=== PATIENT | male | born 1960 | race African-American/Black ===

== ENCOUNTER → 2016-10-31 | Outpatient (CLI) | payer OTHER ==
[~2016-10-31] MED LIST: ACLI400A2 IH; ALBU8.5H IH; CLON2 PO; CYCL10 PO; FERR-89 PO; MIRT30 PO; OMEP20 PO; PERCT PO; QUET200T PO; RIVA10 PO; TAMS0.4C32 PO; TRAM50TA4 PO
[2016-10-31 15:07] VITALS: BP 121/71
== END | disposition home or self-care (01) ==
LOC: HBOWC 14:35
PROVIDERS: ATTEND Emergency Medicine
DX: S91.114D Laceration without foreign body of right lesser toe(s) without damage to nail, subsequent encounter (principal); R60.0 Localized edema; L84 Corns and callosities; M79.672 Pain in left foot; B35.1 Tinea unguium; J44.9 Chronic obstructive pulmonary disease, unspecified; I10 Essential (primary) hypertension; F20.9 Schizophrenia, unspecified; F10.10 Alcohol abuse, uncomplicated; F11.10 Opioid abuse, uncomplicated; F17.210 Nicotine dependence, cigarettes, uncomplicated; Z86.718 Personal history of other venous thrombosis and embolism; X58.XXXD Exposure to other specified factors, subsequent encounter
CPT/HCPCS: 11055

== ENCOUNTER → 2016-11-14 | Outpatient (CLI) | payer OTHER ==
[2016-11-14 12:07] VITALS: BP 113/65
== END | disposition home or self-care (01) ==
LOC: HBOWC 11:22
PROVIDERS: ATTEND Emergency Medicine
DX: S91.114D Laceration without foreign body of right lesser toe(s) without damage to nail, subsequent encounter (principal); I10 Essential (primary) hypertension; L84 Corns and callosities; J44.9 Chronic obstructive pulmonary disease, unspecified; B35.1 Tinea unguium; X58.XXXD Exposure to other specified factors, subsequent encounter; Y92.9 Unspecified place or not applicable; Y99.9 Unspecified external cause status; Z86.718 Personal history of other venous thrombosis and embolism; F17.210 Nicotine dependence, cigarettes, uncomplicated; F10.10 Alcohol abuse, uncomplicated

== ENCOUNTER 2017-03-22 18:02 | Emergency (ER) | payer OTHER ==
[~2017-03-22] VITALS: Ht 188 cm; Wt 100.0 kg
[2017-03-22] MEDS ORDERED: RIVA10 PO (18:25)
[2017-03-22] MEDS ORDERED: QUET200T PO (18:25)
[2017-03-22] MEDS ORDERED: ACLI400A2 IH (18:25)
[2017-03-22] MEDS ORDERED: CYCL10 PO (18:25)
[2017-03-22] MEDS ORDERED: TAMS0.4C32 PO (18:25)
[2017-03-22] MEDS ORDERED: PERCT PO (18:25)
[2017-03-22] MEDS ORDERED: MIRT30 PO (18:25)
[2017-03-22] MEDS ORDERED: OMEP20 PO (18:25)
[2017-03-22] MEDS ORDERED: FERR-89 PO (18:25)
[2017-03-22] MEDS ORDERED: TRAM50TA4 PO (18:25)
[2017-03-22] MEDS ORDERED: CLON2 PO (18:25)
[2017-03-22] MEDS ORDERED: ALBU8.5H IH (18:25)
[2017-03-22 18:31] VITALS: BP 153/75
== END 2017-03-22 20:12 | disposition left against medical advice (07) ==
LOC: EMS 18:04
DX: R10.9 Unspecified abdominal pain (principal); Z53.21 Procedure and treatment not carried out due to patient leaving prior to being seen by health care provider

== ENCOUNTER 2019-06-07 09:22 | Emergency (ER) | payer OTHER ==
[~2019-06-07] VITALS: Ht 182.9 cm; Wt 100.0 kg
[~2019-06-07 09:22] MED LIST changes: -ACLI400A2 IH; +ACLI400A3 IH; -ALBU8.5H IH; +ALBU8.5H8 IH
[2019-06-07 09:30] VITALS: BP 144/87
[2019-06-07] MEDS ORDERED: AMLO5TAB9 PO (09:35)
[2019-06-07] MEDS ORDERED: ESOM20CA31 PO (09:35)
[2019-06-07] MEDS ORDERED: DOXE25 PO (09:35)
[2019-06-07] MEDS ORDERED: LIDOCAINE/PF 1% 30 ML VIAL INJ ONE (11:30)
[2019-06-07] MEDS ORDERED: LIDOCAINE/PF 1% 5 ML VIAL INJ ONE (11:45)
== END 2019-06-07 12:59 | disposition left against medical advice (07) ==
LOC: EMS 09:25
DX: S01.81XA Laceration without foreign body of other part of head, initial encounter (principal); F20.9 Schizophrenia, unspecified; J44.9 Chronic obstructive pulmonary disease, unspecified; I10 Essential (primary) hypertension; F17.210 Nicotine dependence, cigarettes, uncomplicated; F12.90 Cannabis use, unspecified, uncomplicated; Z91.14 Patient's other noncompliance with medication regimen; Z53.20 Procedure and treatment not carried out because of patient's decision for unspecified reasons; Z99.2 Dependence on renal dialysis; Z79.899 Other long term (current) drug therapy; Z88.8 Allergy status to other drugs, medicaments and biological substances; Z98.890 Other specified postprocedural states; W05.0XXA Fall from non-moving wheelchair, initial encounter; Y93.89 Activity, other specified; Y92.89 Other specified places as the place of occurrence of the external cause; Y99.8 Other external cause status
CPT/HCPCS: 12011; 93005; J3490

== ENCOUNTER 2019-09-14 09:36 | Inpatient (IN) | payer MEDICAID, OTHER ==
[~2019-09-14] VITALS: Ht 185.4 cm; Wt 113.6 kg
[~2019-09-14 09:36] MED LIST changes: -ACLI400A3 IH; -ALBU8.5H8 IH; +AMLO5TAB9 PO; -CLON2 PO; -CYCL10 PO; +DOXE25 PO; +ESOM20CA31 PO; -FERR-89 PO; -PERCT PO; -RIVA10 PO; -TAMS0.4C32 PO; -TRAM50TA4 PO
[2019-09-14] MEDS ORDERED: LORazepam 2 MG TABLET PO PRN (13:30)
[2019-09-14] MEDS ORDERED: HALOPERIDOL 5 MG TABLET PO PRN (13:30)
[2019-09-14] MEDS ORDERED: ZOLPIDEM TARTRATE 10 MG TABLET PO PRN (13:30)
[2019-09-14] MEDS ORDERED: DiphenhydrAMINE HCL 50 MG/ML VIAL IM ONE (17:45)
[2019-09-14] MEDS ORDERED: LORazepam 2 MG/ML VIAL IM ONE (17:45)
[2019-09-14] MEDS ORDERED: ZIPRASIDONE MESYLATE 20 MG/VIAL IM ONE (18:00)
[2019-09-15] MEDS ORDERED: PNEUMOCOCCAL VACCINE POLYVALENT 0.5 ML VIAL [PPSV23] IM ONE (05:30)
[2019-09-15] MEDS ORDERED: INFLUENZA VIRUS VACCINE QVS 2019-20 (3YR+)/PF 60 MCG/0.5 ML SYRINGE IM ONE (05:30)
[2019-09-15] MEDS: AmLODIPine BESYLATE 5 MG TABLET PO SCH ×2 (08:34→09:00)
[2019-09-15] MEDS ORDERED: OMEPRAZOLE 20 MG CAPSULE PO SCH (09:00)
[2019-09-15] MEDS ORDERED: ESOMEPRAZOLE MAG TRIHYDRATE 20 MG CAPSULE PO SCH (09:00)
[2019-09-15] MEDS ORDERED: DOCUSATE SODIUM 100 MG CAPSULE PO PRN (12:00)
[2019-09-15] MEDS ORDERED: MAG HYDROX/AL HYDROX/SIMETH ES 30 ML SUSPENSION UDCUP PO PRN (12:00)
[2019-09-15] MEDS ORDERED: GuaiFENesin/D-METHORPHAN [SUGAR-FREE] 200-20MG/10 ML SYRUP UDCUP PO PRN (12:00)
[2019-09-15] MEDS ORDERED: MAGNESIUM HYDROXIDE SUSPENSION 30 ML UDCUP PO PRN (12:00)
[2019-09-15] MEDS ORDERED: CloNIDine HCL 0.1 MG TABLET PO PRN (12:00)
[2019-09-15] MEDS ORDERED: PETROLATUM,WHITE 28 GM JELLY TP PRN (12:00)
[2019-09-15] MEDS ORDERED: ONDANSETRON HCL 4 MG TABLET PO PRN (12:00)
[2019-09-15] MEDS ORDERED: ALBUTEROL SULFATE HFA 90 MCG/PUFF 8 GM INHALER IH PRN (12:00)
[2019-09-15] MEDS ORDERED: LOPERAMIDE HCL 2 MG CAPSULE PO PRN (12:00)
[2019-09-15] MEDS ORDERED: ACETAMINOPHEN 325 MG TABLET PO PRN (12:00)
[2019-09-15] MEDS ORDERED: IBUPROFEN 400 MG TABLET PO PRN (12:00)
[2019-09-15] MEDS: NICOTINE 21 MG/24 HOUR PATCH TD PRN (12:35)
[2019-09-15] MEDS ORDERED: MIRTAZAPINE 15 MG TABLET PO SCH (21:00)
[2019-09-15] MEDS ORDERED: QUEtiapine FUMARATE 200 MG TABLET PO SCH (21:00)
[2019-09-16 06:02] VITALS: BP 132/67
[2019-09-16] MEDS ORDERED: BUDESONIDE/FORMOTEROL FUMARATE 160-4.5 MCG/PUFF 6.9 GM INHALER IH SCH (09:00)
[2019-09-16] MEDS ORDERED: AmLODIPine BESYLATE 5 MG TABLET PO SCH (09:00)
[2019-09-16] MEDS ORDERED: OMEPRAZOLE 20 MG CAPSULE PO SCH (09:00)
[2019-09-16] MEDS ORDERED: BUDE10.2 IH (11:25)
[2019-09-16] MEDS: NICOTINE 21 MG/24 HOUR PATCH TD PRN (12:22)
== END 2019-09-16 13:40 | disposition home or self-care (01) | DRG 750 ==
LOC: EMS 09:38 → B3A 18:08
PROVIDERS: ADMIT Psychiatry & Neurology Psychiatry; ATTEND Psychiatry & Neurology Psychiatry
DX: F20.9 Schizophrenia, unspecified (principal); D64.9 Anemia, unspecified; F17.200 Nicotine dependence, unspecified, uncomplicated; I10 Essential (primary) hypertension; J44.9 Chronic obstructive pulmonary disease, unspecified; K21.9 Gastro-esophageal reflux disease without esophagitis; F10.10 Alcohol abuse, uncomplicated; Y90.9 Presence of alcohol in blood, level not specified; F12.90 Cannabis use, unspecified, uncomplicated; Z88.8 Allergy status to other drugs, medicaments and biological substances; Z28.21 Immunization not carried out because of patient refusal
CPT/HCPCS: J1200; J2060; J3486; J3535

== ENCOUNTER 2019-10-02 09:16 | Emergency (ER) | payer MEDICAID, OTHER ==
[~2019-10-02] VITALS: Ht 190.5 cm; Wt 90.9 kg
[~2019-10-02 09:16] MED LIST changes: +BUDE10.2 IH; -DOXE25 PO; -ESOM20CA31 PO
[2019-10-02] MEDS ORDERED: SODIUM CHLORIDE 0.9% 1,000 ML IV ONE (10:17)
[2019-10-02 10:53] LABS: BASOPHILS % (AUTO) 0.6 % (0.0-2.0); EOSINOPHILS % (AUTO) 1.8 % (1.0-6.0); HEMATOCRIT 32.8 % (41-53); HEMOGLOBIN 10.7 g/dL (13.5-17.5); LYMPHOCYTES # (AUTO) 1.3 K/uL (1.0-4.8); LYMPHOCYTES % (AUTO) 19.2 % (22.0-44.0); MEAN CORPUSCULAR HGB CONC 32.6 G/dL (31.0-37.0); MEAN CORPUSCULAR VOLUME 77 fL (80-100); MONOCYTES # (AUTO) 0.5 K/uL (0.1-1.0); MONOCYTES % (AUTO) 7.8 % (2.0-9.0); NEUTROPHILS # (AUTO) 4.6 K/uL (1.8-7.7); NEUTROPHILS % (AUTO) 70.6 % (40.0-70.0); PLATELET COUNT (AUTO) 323 K/uL (150-450); RED BLOOD CELL COUNT(AUTO) 4.27 MIL/uL (4.50-5.90); RED CELL DISTRIBUTION WIDTH 17.7 % (11.5-14.5)
[2019-10-02 11:11] LABS: LACTIC ACID 1.8 mmol/L (0.4-2.0)
[2019-10-02 11:17] LABS: ALANINE AMINOTRANSFERASE 27 U/L (12-78); ALBUMIN 3.2 g/dL (3.4-5.0); ALKALINE PHOSPHATASE 63 U/L (46-116); ANION GAP 10 mmol/L (8-16); ASPARTATE AMINOTRANSFERASE 32 U/L (15-37); BILIRUBIN,TOTAL 0.5 mg/dL (0.1-1.0); CALCIUM, TOTAL 8.7 mg/dL (8.8-10.5); CARBON DIOXIDE 27 mmol/L (22-29); CHLORIDE 104 mmol/L (98-107); CREATININE 1.07 mg/dL (0.60-1.30); GLOMERULAR FILTR. RATE CALC > 60 mL/min (>60); GLUCOSE,RANDOM 119 mg/dL (70-110); LIPASE 62 U/L (73-393); SODIUM SERUM 141 mmol/L (136-145); TOTAL PROTEIN, SERUM 7.2 g/dL (6.4-8.2); UREA NITROGEN, BLOOD 16 mg/dL (7-18)
[2019-10-02] MEDS ORDERED: TAMS-13 PO (12:00)
[2019-10-02 13:34] LABS: APPEARANCE,URINE CLEAR (CLEAR); GLUCOSE, URINE (UA) NEGATIVE (NEGATIVE); KETONES,URINE 15 mg/dL (NEGATIVE); LEUKOCYTE ESTERASE ,URINE NEGATIVE (NEGATIVE); NITRATE,URINE NEGATIVE (NEGATIVE); OCCULT BLOOD,URINE NEGATIVE (NEGATIVE)
[2019-10-02 13:36] LABS: BILIRUBIN,URINE PRELIM. POSITIVE (NEGATIVE); PROTEIN,URINE NEGATIVE (NEGATIVE)
[2019-10-02] MEDS ORDERED: POTASSIUM CHLORIDE 20 MEQ ER TABLET PO ONE (14:00)
[2019-10-02] MEDS ORDERED: GuaiFENesin/D-METHORPHAN [SUGAR-FREE] 200-20MG/10 ML SYRUP UDCUP PO ONE (15:30)
[2019-10-02] MEDS: ACETAMINOPHEN 500 MG TABLET PO ONE ×2 (15:42→15:46)
[2019-10-02 16:42] VITALS: BP 137/74
== END 2019-10-02 16:58 | disposition home or self-care (01) ==
LOC: EMS 09:19
DX: R19.7 Diarrhea, unspecified (principal); E87.6 Hypokalemia; R10.84 Generalized abdominal pain; I10 Essential (primary) hypertension; J44.9 Chronic obstructive pulmonary disease, unspecified; F20.9 Schizophrenia, unspecified; F12.90 Cannabis use, unspecified, uncomplicated; Z59.0 Homelessness; Z99.2 Dependence on renal dialysis; Z79.899 Other long term (current) drug therapy; Z88.8 Allergy status to other drugs, medicaments and biological substances
CPT/HCPCS: 36415; 80053; 81003; 83605; 83690; 85025; 96360; 99283; J7030

== ENCOUNTER 2019-10-02 17:14 | Emergency (ER) | payer OTHER ==
[~2019-10-02] VITALS: Ht 182.9 cm; Wt 95.5 kg
[~2019-10-02 17:14] MED LIST changes: +TAMS-13 PO
[2019-10-02 20:09] VITALS: BP 133/79
[2019-10-02 20:50] LABS: EOSINOPHILS % (AUTO) 1.9 % (1.0-6.0); HEMATOCRIT 31.3 % (41-53); HEMOGLOBIN 10.2 g/dL (13.5-17.5); LYMPHOCYTES # (AUTO) 1.3 K/uL (1.0-4.8); LYMPHOCYTES % (AUTO) 18.5 % (22.0-44.0); MEAN CORPUSCULAR HGB CONC 32.4 G/dL (31.0-37.0); MEAN CORPUSCULAR VOLUME 77 fL (80-100); MONOCYTES # (AUTO) 0.8 K/uL (0.1-1.0); MONOCYTES % (AUTO) 11.1 % (2.0-9.0); NEUTROPHILS # (AUTO) 4.7 K/uL (1.8-7.7); NEUTROPHILS % (AUTO) 67.5 % (40.0-70.0); PLATELET COUNT (AUTO) 332 K/uL (150-450); RED BLOOD CELL COUNT(AUTO) 4.07 MIL/uL (4.50-5.90); RED CELL DISTRIBUTION WIDTH 17.7 % (11.5-14.5)
[2019-10-02 20:58] LABS: ANION GAP 7 mmol/L (8-16); CALCIUM, TOTAL 8.5 mg/dL (8.8-10.5); CARBON DIOXIDE 27 mmol/L (22-29); CHLORIDE 105 mmol/L (98-107); CREATININE 1.02 mg/dL (0.60-1.30); GLOMERULAR FILTR. RATE CALC > 60 mL/min (>60); GLUCOSE,RANDOM 97 mg/dL (70-110); POTASSIUM 3.7 mmol/L (3.5-5.1); SODIUM SERUM 139 mmol/L (136-145); UREA NITROGEN, BLOOD 15 mg/dL (7-18)
[2019-10-02 21:04] LABS: ALANINE AMINOTRANSFERASE 27 U/L (12-78); ALBUMIN 3.1 g/dL (3.4-5.0); ALKALINE PHOSPHATASE 68 U/L (46-116); ASPARTATE AMINOTRANSFERASE 30 U/L (15-37); BILIRUBIN,TOTAL 0.4 mg/dL (0.1-1.0); TOTAL PROTEIN, SERUM 6.9 g/dL (6.4-8.2)
[2019-10-02] MEDS ORDERED: MIRTAZAPINE 15 MG TABLET PO ONE (21:45)
[2019-10-02] MEDS ORDERED: QUEtiapine FUMARATE 100 MG TABLET PO ONE (21:45)
== END 2019-10-02 23:31 | disposition home or self-care (01) ==
LOC: EMS 17:16
DX: F20.9 Schizophrenia, unspecified (principal); I10 Essential (primary) hypertension; J44.9 Chronic obstructive pulmonary disease, unspecified; K21.9 Gastro-esophageal reflux disease without esophagitis; F17.210 Nicotine dependence, cigarettes, uncomplicated; F12.90 Cannabis use, unspecified, uncomplicated; Z98.890 Other specified postprocedural states; Z99.2 Dependence on renal dialysis; Z88.8 Allergy status to other drugs, medicaments and biological substances; Z79.899 Other long term (current) drug therapy
CPT/HCPCS: 36415; 80053; 85025; 99284; G0480

== ENCOUNTER 2019-10-03 18:41 | Emergency (ER) | payer OTHER ==
[~2019-10-03] VITALS: Ht 188 cm; Wt 100.0 kg
[2019-10-03] MEDS ORDERED: TRIAMCINOLONE ACET 55 MCG/SPRAY 16.9 ML NASAL SPRAY NASAL ONE (19:00)
[2019-10-03] MEDS ORDERED: LIDOCAINE 5% TRANSDERMAL PATCH TD ONE (19:00)
[2019-10-03 21:00] VITALS: BP 129/82
== END 2019-10-03 21:00 | disposition home or self-care (01) ==
LOC: EMS 18:43
DX: G89.29 Other chronic pain (principal); M25.571 Pain in right ankle and joints of right foot; R09.81 Nasal congestion; I10 Essential (primary) hypertension; J44.9 Chronic obstructive pulmonary disease, unspecified; F20.9 Schizophrenia, unspecified; F12.90 Cannabis use, unspecified, uncomplicated; Z98.890 Other specified postprocedural states; Z88.8 Allergy status to other drugs, medicaments and biological substances; Z79.899 Other long term (current) drug therapy

== ENCOUNTER 2019-10-05 15:28 | Inpatient (IN) | payer MEDICAID, OTHER ==
[~2019-10-05] VITALS: Ht 190.5 cm; Wt 105.0 kg
[2019-10-05 16:36] LABS: BASOPHILS % (AUTO) 0.7 % (0.0-2.0); EOSINOPHILS % (AUTO) 1.7 % (1.0-6.0); HEMATOCRIT 33.8 % (41-53); HEMOGLOBIN 10.9 g/dL (13.5-17.5); LYMPHOCYTES # (AUTO) 1.1 K/uL (1.0-4.8); LYMPHOCYTES % (AUTO) 20.4 % (22.0-44.0); MEAN CORPUSCULAR HEMOGLOBIN 25.2 pg (26.0-34.0); MEAN CORPUSCULAR HGB CONC 32.3 G/dL (31.0-37.0); MEAN CORPUSCULAR VOLUME 78 fL (80-100); MONOCYTES # (AUTO) 0.7 K/uL (0.1-1.0); MONOCYTES % (AUTO) 13.4 % (2.0-9.0); NEUTROPHILS # (AUTO) 3.3 K/uL (1.8-7.7); NEUTROPHILS % (AUTO) 63.8 % (40.0-70.0); PLATELET COUNT (AUTO) 332 K/uL (150-450); RED BLOOD CELL COUNT(AUTO) 4.32 MIL/uL (4.50-5.90); RED CELL DISTRIBUTION WIDTH 17.7 % (11.5-14.5)
[2019-10-05 16:47] LABS: ANION GAP 6 mmol/L (8-16); CALCIUM, TOTAL 8.9 mg/dL (8.8-10.5); CARBON DIOXIDE 30 mmol/L (22-29); CHLORIDE 105 mmol/L (98-107); CREATININE 1.12 mg/dL (0.60-1.30); GLOMERULAR FILTR. RATE CALC > 60 mL/min (>60); GLUCOSE,RANDOM 82 mg/dL (70-110); POTASSIUM 4.1 mmol/L (3.5-5.1); SODIUM SERUM 141 mmol/L (136-145); UREA NITROGEN, BLOOD 15 mg/dL (7-18)
[2019-10-05 16:51] LABS: ALANINE AMINOTRANSFERASE 28 U/L (12-78); ALBUMIN 3.4 g/dL (3.4-5.0); ALKALINE PHOSPHATASE 78 U/L (46-116); ASPARTATE AMINOTRANSFERASE 20 U/L (15-37); BILIRUBIN,TOTAL 0.3 mg/dL (0.1-1.0); TOTAL PROTEIN, SERUM 7.8 g/dL (6.4-8.2)
[2019-10-05] MEDS ORDERED: CEPHALEXIN MONOHYDRATE 500 MG CAPSULE PO ONE (17:30)
[2019-10-05 18:33] LABS: AMPHET/METH SCREEN,URINE POSITIVE (NEGATIVE); BARBITURATE SCREEN, URINE NEGATIVE (NEGATIVE); BENZODIAZEPINES SCREEN,URINE NEGATIVE (NEGATIVE); CANNABINOID SCREEN,URINE POSITIVE (NEGATIVE); COCAINE SCREEN,URINE NEGATIVE (NEGATIVE); METHADONE SCREEN, URINE NEGATIVE (NEGATIVE); OPIATE SCREEN,URINE NEGATIVE (NEGATIVE)
[2019-10-05 18:34] LABS: PHENCYCLIDINE SCREEN,URINE NEGATIVE (NEGATIVE)
[2019-10-05 21:51] LABS: APPEARANCE,URINE CLEAR (CLEAR); GLUCOSE, URINE (UA) NEGATIVE (NEGATIVE); KETONES,URINE TRACE mg/dL (NEGATIVE); LEUKOCYTE ESTERASE ,URINE NEGATIVE (NEGATIVE); NITRATE,URINE NEGATIVE (NEGATIVE); OCCULT BLOOD,URINE NEGATIVE (NEGATIVE); PH,URINE 6.5 (5.0-8.0); PROTEIN,URINE NEGATIVE (NEGATIVE)
[2019-10-05 22:06] LABS: BILIRUBIN,URINE PRELIM. POSITIVE (NEGATIVE)
[2019-10-05 22:30] LABS: BACTERIA,URINE None Seen /HPF (None Seen); RBC,URINE None Seen /HPF (0-2); SQUAMOUS EPITHELIAL CELL,UR Rare /LPF (None Seen); WBC,URINE None Seen /HPF (0-5)
[2019-10-06] MEDS ORDERED: INFLUENZA VIRUS VACCINE QVS 2019-20 (3YR+)/PF 60 MCG/0.5 ML SYRINGE IM ONE (00:15)
[2019-10-06] MEDS ORDERED: PNEUMOCOCCAL VACCINE POLYVALENT 0.5 ML VIAL [PPSV23] IM ONE (00:15)
[2019-10-06 00:33] VITALS: BP 107/68
[2019-10-06] MEDS: TAMSULOSIN HCL 0.4 MG CAPSULE PO SCH (11:09)
[2019-10-06] MEDS: AmLODIPine BESYLATE 5 MG TABLET PO SCH ×2 (11:09→11:18)
[2019-10-06] MEDS: CEPHALEXIN MONOHYDRATE 500 MG CAPSULE PO SCH ×3 (11:10→17:20)
[2019-10-06] MEDS: OMEPRAZOLE 20 MG CAPSULE PO SCH (11:10)
[2019-10-06] MEDS: BUDESONIDE/FORMOTEROL FUMARATE 160-4.5 MCG/PUFF 6.9 GM INHALER IH SCH ×2 (11:14→17:00)
[2019-10-06] MEDS: MAGNESIUM SULFATE 454 GM BOX TP SCH (14:11)
[2019-10-06] MEDS: MIRTAZAPINE 30 MG TABLET PO SCH (21:03)
[2019-10-06] MEDS: QUEtiapine FUMARATE 200 MG TABLET PO SCH (21:04)
[2019-10-07] MEDS: CEPHALEXIN MONOHYDRATE 500 MG CAPSULE PO SCH ×5 (00:13→23:48)
[2019-10-07] MEDS: AmLODIPine BESYLATE 5 MG TABLET PO SCH ×2 (09:00→09:15)
[2019-10-07] MEDS: OMEPRAZOLE 20 MG CAPSULE PO SCH (09:15)
[2019-10-07] MEDS: TAMSULOSIN HCL 0.4 MG CAPSULE PO SCH (09:16)
[2019-10-07] MEDS: MAGNESIUM SULFATE 454 GM BOX TP SCH (09:17)
[2019-10-07] MEDS: BUDESONIDE/FORMOTEROL FUMARATE 160-4.5 MCG/PUFF 6.9 GM INHALER IH SCH ×2 (09:17→17:14)
[2019-10-07 13:42] VITALS: BP 106/71
[2019-10-07 16:00] VITALS: BP 134/79
[2019-10-07] MEDS: PETROLATUM,WHITE 28 GM JELLY TP PRN (16:12)
[2019-10-07] MEDS: LORazepam 2 MG TABLET PO PRN (17:14)
[2019-10-07] MEDS ORDERED: LOPERAMIDE HCL 2 MG CAPSULE PO PRN (17:30)
[2019-10-07] MEDS ORDERED: ACETAMINOPHEN 325 MG TABLET PO PRN (17:30)
[2019-10-07] MEDS ORDERED: IBUPROFEN 400 MG TABLET PO PRN (17:30)
[2019-10-07] MEDS ORDERED: DOCUSATE SODIUM 100 MG CAPSULE PO PRN (17:30)
[2019-10-07] MEDS ORDERED: ONDANSETRON HCL 4 MG TABLET PO PRN (17:30)
[2019-10-07] MEDS ORDERED: CloNIDine HCL 0.1 MG TABLET PO PRN (17:30)
[2019-10-07] MEDS ORDERED: PETROLATUM,WHITE 28 GM JELLY TP PRN (17:30)
[2019-10-07] MEDS ORDERED: MAG HYDROX/AL HYDROX/SIMETH ES 30 ML SUSPENSION UDCUP PO PRN (17:30)
[2019-10-07] MEDS ORDERED: GuaiFENesin/D-METHORPHAN [SUGAR-FREE] 200-20MG/10 ML SYRUP UDCUP PO PRN (17:30)
[2019-10-07] MEDS ORDERED: ALBUTEROL SULFATE HFA 90 MCG/PUFF 8 GM INHALER IH PRN (17:30)
[2019-10-07] MEDS ORDERED: MAGNESIUM HYDROXIDE SUSPENSION 30 ML UDCUP PO PRN (17:30)
[2019-10-07] MEDS: QUEtiapine FUMARATE 200 MG TABLET PO SCH (21:00)
[2019-10-07] MEDS: MIRTAZAPINE 30 MG TABLET PO SCH (21:00)
[2019-10-08 01:44] VITALS: BP 114/76
[2019-10-08 03:17] LABS: APPEARANCE,URINE CLEAR (CLEAR); BILIRUBIN,URINE NEGATIVE (NEGATIVE); GLUCOSE, URINE (UA) NEGATIVE (NEGATIVE); KETONES,URINE NEGATIVE (NEGATIVE); LEUKOCYTE ESTERASE ,URINE NEGATIVE (NEGATIVE); NITRATE,URINE NEGATIVE (NEGATIVE); OCCULT BLOOD,URINE NEGATIVE (NEGATIVE); PROTEIN,URINE NEGATIVE (NEGATIVE); UROBILINOGEN,URINE 0.2 mg/dL (<=1.0)
[2019-10-08 03:30] LABS: AMPHET/METH SCREEN,URINE NEGATIVE (NEGATIVE); BARBITURATE SCREEN, URINE NEGATIVE (NEGATIVE); BENZODIAZEPINES SCREEN,URINE NEGATIVE (NEGATIVE); CANNABINOID SCREEN,URINE NEGATIVE (NEGATIVE); COCAINE SCREEN,URINE NEGATIVE (NEGATIVE); METHADONE SCREEN, URINE NEGATIVE (NEGATIVE); OPIATE SCREEN,URINE NEGATIVE (NEGATIVE); PHENCYCLIDINE SCREEN,URINE NEGATIVE (NEGATIVE)
[2019-10-08] MEDS: CEPHALEXIN MONOHYDRATE 500 MG CAPSULE PO SCH ×3 (06:38→23:41)
[2019-10-08 08:21] VITALS: BP 133/88
[2019-10-08] MEDS: BUDESONIDE/FORMOTEROL FUMARATE 160-4.5 MCG/PUFF 6.9 GM INHALER IH SCH ×2 (08:38→16:36)
[2019-10-08] MEDS: OMEPRAZOLE 20 MG CAPSULE PO SCH (08:38)
[2019-10-08] MEDS: TAMSULOSIN HCL 0.4 MG CAPSULE PO SCH (08:38)
[2019-10-08] MEDS: AmLODIPine BESYLATE 5 MG TABLET PO SCH (08:39)
[2019-10-08] MEDS: MAGNESIUM SULFATE 454 GM BOX TP SCH (09:00)
[2019-10-08] MEDS ORDERED: IBUPROFEN 400 MG TABLET PO PRN (14:30)
[2019-10-08] MEDS ORDERED: ACETAMINOPHEN 325 MG TABLET PO PRN (14:30)
[2019-10-08] MEDS: TraMADol HCL 50 MG TABLET PO PRN (16:40)
[2019-10-08] MEDS: QUEtiapine FUMARATE 200 MG TABLET PO SCH (21:25)
[2019-10-08] MEDS: MIRTAZAPINE 30 MG TABLET PO SCH (21:26)
[2019-10-09] MEDS: CEPHALEXIN MONOHYDRATE 500 MG CAPSULE PO SCH ×3 (06:01→16:56)
[2019-10-09] MEDS: MAGNESIUM SULFATE 454 GM BOX TP SCH (09:00)
[2019-10-09] MEDS: OMEPRAZOLE 20 MG CAPSULE PO SCH (09:36)
[2019-10-09] MEDS: BUDESONIDE/FORMOTEROL FUMARATE 160-4.5 MCG/PUFF 6.9 GM INHALER IH SCH ×2 (09:36→16:56)
[2019-10-09] MEDS: AmLODIPine BESYLATE 5 MG TABLET PO SCH (09:36)
[2019-10-09] MEDS: TAMSULOSIN HCL 0.4 MG CAPSULE PO SCH (09:36)
[2019-10-09] MEDS: TraMADol HCL 50 MG TABLET PO PRN ×2 (09:42→18:11)
[2019-10-09] MEDS ORDERED: FLUTICASONE PROPIONATE 50 MCG/SPRAY 16 GM NASAL SPRAY NASAL PRN (13:00)
[2019-10-09] MEDS: PETROLATUM,WHITE 28 GM JELLY TP PRN (18:11)
[2019-10-09] MEDS: MIRTAZAPINE 30 MG TABLET PO SCH (20:58)
[2019-10-09] MEDS: QUEtiapine FUMARATE 200 MG TABLET PO SCH (20:58)
[2019-10-10] MEDS: CEPHALEXIN MONOHYDRATE 500 MG CAPSULE PO SCH ×5 (05:14→23:32)
[2019-10-10 07:34] LABS: BASOPHILS % (AUTO) 0.6 % (0.0-2.0); EOSINOPHILS % (AUTO) 2.4 % (1.0-6.0); HEMOGLOBIN 10.3 g/dL (13.5-17.5); LYMPHOCYTES # (AUTO) 1.8 K/uL (1.0-4.8); LYMPHOCYTES % (AUTO) 39.1 % (22.0-44.0); MEAN CORPUSCULAR HGB CONC 32.1 G/dL (31.0-37.0); MEAN CORPUSCULAR VOLUME 78 fL (80-100); MONOCYTES # (AUTO) 0.4 K/uL (0.1-1.0); MONOCYTES % (AUTO) 8.3 % (2.0-9.0); NEUTROPHILS # (AUTO) 2.3 K/uL (1.8-7.7); NEUTROPHILS % (AUTO) 49.6 % (40.0-70.0); PLATELET COUNT (AUTO) 285 K/uL (150-450); RED BLOOD CELL COUNT(AUTO) 4.11 MIL/uL (4.50-5.90); RED CELL DISTRIBUTION WIDTH 17.9 % (11.5-14.5)
[2019-10-10 07:54] LABS: HEMOGLOBIN A1C 6.1 % (4.5-6.2)
[2019-10-10 08:01] LABS: ALANINE AMINOTRANSFERASE 18 U/L (12-78); ALBUMIN 2.8 g/dL (3.4-5.0); ALKALINE PHOSPHATASE 64 U/L (46-116); ANION GAP 8 mmol/L (8-16); ASPARTATE AMINOTRANSFERASE 14 U/L (15-37); BILIRUBIN,TOTAL 0.1 mg/dL (0.1-1.0); CALCIUM, TOTAL 8.1 mg/dL (8.8-10.5); CARBON DIOXIDE 25 mmol/L (22-29); CHLORIDE 108 mmol/L (98-107); CHOL/HDL RATIO 2.2 (4.2-7.3); CHOLESTEROL 112 mg/dL (131-200); CREATININE 1.04 mg/dL (0.60-1.30); GLOMERULAR FILTR. RATE CALC > 60 mL/min (>60); GLUCOSE,RANDOM 96 mg/dL (70-110); HDL CHOLESTEROL 51 mg/dL (40-60); LDL CHOL (CALC.) 52 mg/dL (0-130); POTASSIUM 4.3 mmol/L (3.5-5.1); SODIUM SERUM 141 mmol/L (136-145); TOTAL PROTEIN, SERUM 6.5 g/dL (6.4-8.2); TRIGLYCERIDES 47 mg/dL (15-150); UREA NITROGEN, BLOOD 17 mg/dL (7-18)
[2019-10-10] MEDS: MAGNESIUM SULFATE 454 GM BOX TP SCH (09:00)
[2019-10-10] MEDS: TAMSULOSIN HCL 0.4 MG CAPSULE PO SCH (09:57)
[2019-10-10] MEDS: OMEPRAZOLE 20 MG CAPSULE PO SCH (09:57)
[2019-10-10] MEDS: AmLODIPine BESYLATE 5 MG TABLET PO SCH (09:57)
[2019-10-10] MEDS: BUDESONIDE/FORMOTEROL FUMARATE 160-4.5 MCG/PUFF 6.9 GM INHALER IH SCH ×2 (09:58→16:34)
[2019-10-10 10:46] VITALS: BP 124/64
[2019-10-10] MEDS: LORazepam 2 MG TABLET PO PRN (11:02)
[2019-10-10] MEDS: NICOTINE 14 MG/24 HOUR PATCH TD PRN (11:06)
[2019-10-10] MEDS ORDERED: LORATADINE 10 MG TABLET PO PRN (15:30)
[2019-10-10] MEDS: TraMADol HCL 50 MG TABLET PO PRN (16:34)
[2019-10-10 16:35] VITALS: BP 112/78
[2019-10-10 17:37] VITALS: BP 106/59
[2019-10-10] MEDS: MIRTAZAPINE 30 MG TABLET PO SCH (20:02)
[2019-10-10] MEDS: QUEtiapine FUMARATE 200 MG TABLET PO SCH (20:02)
[2019-10-11] MEDS: LORazepam 2 MG TABLET PO PRN ×2 (05:49→13:25)
[2019-10-11] MEDS: CEPHALEXIN MONOHYDRATE 500 MG CAPSULE PO SCH ×3 (05:52→12:53)
[2019-10-11 06:02] VITALS: BP 102/72
[2019-10-11 08:30] VITALS: BP 118/85
[2019-10-11] MEDS: MAGNESIUM SULFATE 454 GM BOX TP SCH (09:00)
[2019-10-11] MEDS: BUDESONIDE/FORMOTEROL FUMARATE 160-4.5 MCG/PUFF 6.9 GM INHALER IH SCH ×2 (09:22→19:51)
[2019-10-11] MEDS: OMEPRAZOLE 20 MG CAPSULE PO SCH (09:22)
[2019-10-11] MEDS: AmLODIPine BESYLATE 5 MG TABLET PO SCH (09:22)
[2019-10-11] MEDS: TAMSULOSIN HCL 0.4 MG CAPSULE PO SCH (09:22)
[2019-10-11 13:29] VITALS: BP 122/74
[2019-10-11] MEDS: TraMADol HCL 50 MG TABLET PO PRN (13:29)
[2019-10-11] MEDS: QUEtiapine FUMARATE 200 MG TABLET PO SCH (21:49)
[2019-10-11] MEDS: MIRTAZAPINE 30 MG TABLET PO SCH (21:49)
[2019-10-12] MEDS: MAGNESIUM SULFATE 454 GM BOX TP SCH (09:00)
[2019-10-12] MEDS: AmLODIPine BESYLATE 5 MG TABLET PO SCH (09:01)
[2019-10-12] MEDS: OMEPRAZOLE 20 MG CAPSULE PO SCH (09:01)
[2019-10-12] MEDS: TAMSULOSIN HCL 0.4 MG CAPSULE PO SCH (09:01)
[2019-10-12] MEDS: BUDESONIDE/FORMOTEROL FUMARATE 160-4.5 MCG/PUFF 6.9 GM INHALER IH SCH ×2 (09:01→17:06)
[2019-10-12] MEDS: LORazepam 2 MG TABLET PO PRN ×2 (09:02→18:23)
[2019-10-12 10:50] VITALS: BP 101/73
[2019-10-12 17:33] VITALS: BP 121/69
[2019-10-12] MEDS: QUEtiapine FUMARATE 200 MG TABLET PO SCH (20:31)
[2019-10-12] MEDS: MIRTAZAPINE 30 MG TABLET PO SCH (20:31)
[2019-10-13] MEDS: TAMSULOSIN HCL 0.4 MG CAPSULE PO SCH (08:31)
[2019-10-13] MEDS: OMEPRAZOLE 20 MG CAPSULE PO SCH (08:31)
[2019-10-13] MEDS: BUDESONIDE/FORMOTEROL FUMARATE 160-4.5 MCG/PUFF 6.9 GM INHALER IH SCH ×2 (08:32→16:14)
[2019-10-13] MEDS: LORazepam 2 MG TABLET PO PRN ×2 (08:32→15:07)
[2019-10-13] MEDS: AmLODIPine BESYLATE 5 MG TABLET PO SCH (08:39)
[2019-10-13] MEDS: MAGNESIUM SULFATE 454 GM BOX TP SCH (09:30)
[2019-10-13] MEDS: PETROLATUM,WHITE 28 GM JELLY TP PRN (15:10)
[2019-10-13] MEDS: MIRTAZAPINE 30 MG TABLET PO SCH ×2 (20:12→22:00)
[2019-10-13] MEDS: QUEtiapine FUMARATE 200 MG TABLET PO SCH ×2 (20:12→22:00)
[2019-10-13] MEDS: TraMADol HCL 50 MG TABLET PO PRN (22:44)
[2019-10-13] MEDS: ZOLPIDEM TARTRATE 10 MG TABLET PO PRN (22:44)
[2019-10-14] MEDS: OMEPRAZOLE 20 MG CAPSULE PO SCH (08:52)
[2019-10-14] MEDS: AmLODIPine BESYLATE 5 MG TABLET PO SCH (08:52)
[2019-10-14] MEDS: BUDESONIDE/FORMOTEROL FUMARATE 160-4.5 MCG/PUFF 6.9 GM INHALER IH SCH ×2 (08:53→16:15)
[2019-10-14] MEDS: TAMSULOSIN HCL 0.4 MG CAPSULE PO SCH (08:53)
[2019-10-14] MEDS: TraMADol HCL 50 MG TABLET PO PRN ×2 (08:55→21:06)
[2019-10-14] MEDS: MAGNESIUM SULFATE 454 GM BOX TP SCH (09:00)
[2019-10-14] MEDS: LORazepam 2 MG TABLET PO PRN (14:06)
[2019-10-14] MEDS: NICOTINE 14 MG/24 HOUR PATCH TD PRN (19:25)
[2019-10-14 19:30] VITALS: BP 123/65
[2019-10-14] MEDS: MIRTAZAPINE 30 MG TABLET PO SCH (21:07)
[2019-10-14] MEDS: QUEtiapine FUMARATE 200 MG TABLET PO SCH (21:09)
[2019-10-15] MEDS: AmLODIPine BESYLATE 5 MG TABLET PO SCH (08:38)
[2019-10-15] MEDS: OMEPRAZOLE 20 MG CAPSULE PO SCH (08:38)
[2019-10-15] MEDS: BUDESONIDE/FORMOTEROL FUMARATE 160-4.5 MCG/PUFF 6.9 GM INHALER IH SCH ×2 (08:39→16:44)
[2019-10-15] MEDS: TAMSULOSIN HCL 0.4 MG CAPSULE PO SCH (08:39)
[2019-10-15] MEDS: MAGNESIUM SULFATE 454 GM BOX TP SCH (08:41)
[2019-10-15 08:44] VITALS: BP 131/81
[2019-10-15] MEDS: LORazepam 2 MG TABLET PO PRN (10:20)
[2019-10-15] MEDS: MIRTAZAPINE 30 MG TABLET PO SCH (20:36)
[2019-10-15] MEDS: QUEtiapine FUMARATE 200 MG TABLET PO SCH (20:36)
[2019-10-15 21:15] VITALS: BP 117/78
[2019-10-16] MEDS: ZOLPIDEM TARTRATE 10 MG TABLET PO PRN (01:27)
[2019-10-16] MEDS: MAGNESIUM SULFATE 454 GM BOX TP SCH (09:00)
[2019-10-16] MEDS: AmLODIPine BESYLATE 5 MG TABLET PO SCH (09:00)
[2019-10-16] MEDS: OMEPRAZOLE 20 MG CAPSULE PO SCH (09:25)
[2019-10-16] MEDS: TAMSULOSIN HCL 0.4 MG CAPSULE PO SCH (09:26)
[2019-10-16] MEDS: BUDESONIDE/FORMOTEROL FUMARATE 160-4.5 MCG/PUFF 6.9 GM INHALER IH SCH (09:26)
== END 2019-10-16 10:15 | disposition home or self-care (01) | DRG 885 ==
LOC: EMS 15:32 → 3EI 21:57
PROVIDERS: ADMIT Psychiatry & Neurology Psychiatry; ATTEND Psychiatry & Neurology Psychiatry
DX: F25.1 Schizoaffective disorder, depressive type (principal); L03.115 Cellulitis of right lower limb; R45.851 Suicidal ideations; I10 Essential (primary) hypertension; F41.9 Anxiety disorder, unspecified; F10.10 Alcohol abuse, uncomplicated; D64.9 Anemia, unspecified; J44.9 Chronic obstructive pulmonary disease, unspecified; K21.9 Gastro-esophageal reflux disease without esophagitis; F19.10 Other psychoactive substance abuse, uncomplicated; Z53.29 Procedure and treatment not carried out because of patient's decision for other reasons; F17.210 Nicotine dependence, cigarettes, uncomplicated; Z79.899 Other long term (current) drug therapy; Z59.0 Homelessness; Z91.5 Personal history of self-harm
CPT/HCPCS: 80307; 83036; 84443; 93971; G0480